=== PATIENT | male | born 1990 | race African-American/Black ===

== ENCOUNTER 2018-07-09 09:22 | Emergency (ER) | payer MEDICAID ==
[~2018-07-09] VITALS: Ht 175.3 cm; Wt 108.9 kg
--- NOTE | 2018-07-09 09:44 | NUR ---
ED Nurse Note: Pt came into the ER w/ complaints of left foot pain x 2 days. Pt is rating the pain a 10/10. Non radiating. Pt states that he thinks it is a stress fracture because he had the same one 2 years ago and he is feeling the same symptoms. Pt denies fallin gor having trauma to the area. Pt noted to be limping while walking anf pt noted to not be able to place pressure on the area. Pt is A + O x4. Ambulatory. Skin warm to touch.
[2018-07-09 09:45] VITALS: BP 135/80
--- NOTE | 2018-07-09 09:51 | NUR ---
ED Nurse Note: Notified radiology of xray order.
--- NOTE | 2018-07-09 09:58 | NUR ---
ED Nurse Note: Xray at the bedside.
--- NOTE | 2018-07-09 10:32 | Diagnostic Imaging Report ---
Indication: Foot pain Technique: XRAY Foot Complete L Comparison: None FINDINGS AND IMPRESSION: Bony mineralization within normal limits. Anatomic alignment and joint spaces are maintained. There is irregularity involving the proximal shaft of the fifth metatarsal which may be related to remote fracture. Alternative possibilities include more acute stress type injury/stress fracture. Correlation with clinical symptoms and physical exam for point tenderness in this region is recommended. There is no radiopaque foreign body.
--- NOTE | 2018-07-09 10:56 | Emergency Room Report ---
History of Present Illness General Chief Complaint: Pain Source: Patient Present Illness HPI This patient states that about 2 years ago he had a stress fracture in his left foot. He states this is secondary to doing a lot of walking and being on his feet in boots. He states that over the past couple days he had been wearing an un-supportive shoe. He states that he has pain in the ball of the foot. He states this feels similar to his previous stress fracture. He had no specific trauma. He has no other complaints. Allergies: Coded Allergies: No Known Allergies (Unverified , 07/09/18) Patient History Past Medical History: none, see triage record Social History: Denies: smoking, alcohol use, drug use Reviewed Nursing Documentation: PMH: Agreed; PSxH: Agreed Nursing Documentation-PMH Past Medical History: No Stated History Review of Systems All Other Systems: negative except mentioned in HPI Physical Exam Vital Signs Date Time Temp Pulse Resp B/P (MAP) Pulse Ox O2 Delivery O2 Flow Rate FiO2 07/09/18 09:37 98.4 74 18 137/85 96 Room Air Sp02 EP Interpretation: reviewed, normal General Appearance: no apparent distress, alert, GCS 15, non-toxic Head: normocephalic, atraumatic Eyes: bilateral eye normal inspection, bilateral eye PERRL ENT: hearing grossly normal, no angioedema, normal voice Neck: normal inspection Respiratory: no respiratory distress, no retraction, no accessory muscle use, speaking full sentences Rectal: deferred Musculoskeletal: back normal, normal range of motion, tender - TTP in the ST of the L. mid ball of the foot. Neurologic: alert, oriented x3, responsive, motor strength/tone normal, sensory intact, speech normal Psychiatric: judgement/insight normal, memory normal, mood/affect normal, no suicidal/homicidal ideation Skin: normal color, no rash, warm/dry, well hydrated Medical Decision Making Diagnostic Impression: Primary Impression: Foot pain, left ER Course This patient has pain and tenderness to palpation on the left mid ball of the foot at the distal second and third metatarsal heads. X-ray of the left foot is unremarkable. The patient was educated that in order to diagnose a stress fracture he would need to undergo MRI as an outpatient. There is no obvious fracture. My examination is more consistent with plantar fascia tenderness and soft tissue tenderness. I have a low suspicion for foot fracture. However, the patient was given an with his shoe and crutches for comfort and instructed to follow-up with his primary care physician for further evaluation. At this time, I did not identify an emergency medical condition. Other X-Ray Diagnostic Results Other X-Ray Diagnostic Results : X-Ray ordered: L. Foot xray # of Views/Limited Vs Complete: Complete Indication: Pain EP Interpretation: No Interpretation: no fractures, other - See official report from Radiologist. Patient was not tender in this location. Impression: No acute disease Electronically Signed by: Connie Dexter DO Last Vital Signs Date Time Temp Pulse Resp B/P (MAP) Pulse Ox O2 Delivery O2 Flow Rate FiO2 07/09/18 09:45 98.3 66 20 135/80 97 Room Air Status: improved Disposition: HOME, SELF-CARE Condition: Improved Referrals: [facility],REFERRING (PCP) Connie Dexter DO Jul 09, 2018 10:56
[2018-07-09] MEDS ORDERED: IBUPROFEN800 MG ORAL (10:58)
--- NOTE | 2018-07-09 10:58 | NUR ---
ED Nurse Note: Splint and crutches provided for pt.
[2018-07-09 11:04] VITALS: BP 130/85
--- NOTE | 2018-07-09 11:05 | NUR ---
ER DISCHARGE NOTE: Patient is cleared to be discharged per ERMD, pt is aox4, on room air, with stable vital signs. pt was given dc and prescription instructions, pt was able to verbalize understanding, pt id band removed without complications. pt is able to ambulate with steady gait. pt took all belongings.
== END 2018-07-09 11:05 | disposition home or self-care (01) ==
LOC: EMR 10:15
DX: M79.672 Pain in left foot (principal)
CPT/HCPCS: 99283

== ENCOUNTER 2018-08-20 22:31 | Emergency (ER) | payer MEDICAID ==
[~2018-08-20] VITALS: Ht 175.3 cm; Wt 117.9 kg
[~2018-08-20 22:31] MED LIST: IBUPROFEN800 MG ORAL
--- NOTE | 2018-08-20 22:35 | NUR ---
NO ANSWER FOR PT IN LOBBY
--- NOTE | 2018-08-20 22:50 | NUR ---
ED Nurse Note: Patient walked in to ER c/o abdominal pain, N/V/D since 1800. AAO x4, VSS at this time, skin is dry, intact. Patient complaining of abdominal pain 8/ due to food poisonoing. Per patient he ate tacos today and got poisoned.
--- NOTE | 2018-08-20 22:53 | Emergency Room Report ---
History of Present Illness General Chief Complaint: Nausea, Vomiting, and Diarrhea Source: Patient Present Illness HPI Patient presents with nausea and diarrhea with abdominal pain. He thinks he might of eaten something bad this morning. The pain is constant but is somewhat better after he moves his bowels. Denies dysuria. No vomiting blood and there is no blood in the diarrhea. Pain rated 10/10 in stomach - cramping and mostly constant, diffuse, not radiating. No fevers and chills. Fells dehydrated and weak when standing. No chest pain, sore throat, productive cough, dyspnea, joint pain, rashes, depression. 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 Nursing Documentation: PMH: Agreed; PSxH: Agreed Nursing Documentation-PMH Past Medical History: No Stated History Review of Systems All Other Systems: negative except mentioned in HPI Physical Exam Vital Signs Date Time Temp Pulse Resp B/P (MAP) Pulse Ox O2 Delivery O2 Flow Rate FiO2 08/20/18 22:40 98.4 94 18 98 Room Air Sp02 EP Interpretation: reviewed, normal General Appearance: well appearing, no apparent distress, GCS 15 Head: normocephalic, atraumatic Eyes: bilateral eye normal inspection, bilateral eye PERRL, bilateral eye EOMI ENT: moist mucus membranes Neck: supple Respiratory: lungs clear, normal breath sounds Cardiovascular #1: regular rate, rhythm Cardiovascular #2: 2+ radial (R) Gastrointestinal: normal inspection, normal bowel sounds, no mass, non- distended, no guarding, no rebound, tenderness - diffuse Genitourinary: no CVA tenderness Musculoskeletal: back normal, gait/station normal, normal range of motion Neurologic: alert, oriented x3, grossly normal Psychiatric: mood/affect normal Skin: normal inspection, warm/dry Medical Decision Making Diagnostic Impression: Primary Impression: Nausea, vomiting, and diarrhea Additional Impression: Leukocytosis Qualified Codes: D72.828 - Other elevated white blood cell count ER Course Patient presents with nausea abdominal pain and diarrhea. Differential includes gastroenteritis, food poisoning, diverticulitis, pancreatitis amongst others. He will be evaluated with labs. He will receive IV hydration, Zofran, Toradol and small dose of morphine. Leukocytosis, CMP normal except mild renal insufficiency. UA clear. Pain return. WBC high. CT ordered and repeat morphine. Improved after second morphine. CT no acute pathology. Improved. Sleeping. Discussed treatment plan. Patient stable for outpatient observation and treatment. Laboratory Tests Test 08/20/18 23:05 08/21/18 03:10 White Blood Count 17.2 K/UL (4.8-10.8) H Red Blood Count 5.61 M/UL (4.70-6.10) Hemoglobin 16.1 G/DL (14.2-18.0) Hematocrit 46.7 % (42.0-52.0) Mean Corpuscular Volume 83 FL (80-99) Mean Corpuscular Hemoglobin 28.6 PG (27.0-31.0) Mean Corpuscular Hemoglobin Concent 34.4 G/DL (32.0-36.0) Red Cell Distribution Width 12.4 % (11.6-14.8) Platelet Count 312 K/UL (150-450) Mean Platelet Volume 6.3 FL (6.5-10.1) L Neutrophils (%) (Auto) 75.6 % (45.0-75.0) H Lymphocytes (%) (Auto) 17.7 % (20.0-45.0) L Monocytes (%) (Auto) 5.3 % (1.0-10.0) Eosinophils (%) (Auto) 0.6 % (0.0-3.0) Basophils (%) (Auto) 0.8 % (0.0-2.0) Sodium Level 143 MMOL/L (136-145) Potassium Level 3.6 MMOL/L (3.5-5.1) Chloride Level 106 MMOL/L (98-107) Carbon Dioxide Level 27 MMOL/L (21-32) Anion Gap 10 mmol/L (5-15) Blood Urea Nitrogen 12 mg/dL (7-18) Creatinine 1.5 MG/DL (0.55-1.30) H Estimate Glomerular Filtration Rate > 60 mL/min (>60) Glucose Level 140 MG/DL (74-106) H Calcium Level 9.5 MG/DL (8.5-10.1) Total Bilirubin 0.2 MG/DL (0.2-1.0) Aspartate Amino Transferase (AST) 36 U/L (15-37) Alanine Aminotransferase (ALT) 46 U/L (12-78) Alkaline Phosphatase 68 U/L (46-116) Total Protein 8.6 G/DL (6.4-8.2) H Albumin 3.3 G/DL (3.4-5.0) L Globulin 5.3 g/dL Albumin/Globulin Ratio 0.6 (1.0-2.7) L Lipase 133 U/L (73-393) Urine Color Pale yellow Urine Appearance Clear Urine pH 5 (4.5-8.0) Urine Specific [place] 1.015 (1.005-1.035) Urine Protein Negative (NEGATIVE) Urine Glucose (UA) Negative (NEGATIVE) Urine Ketones Negative (NEGATIVE) Urine Blood 1+ (NEGATIVE) H Urine Nitrite Negative (NEGATIVE) Urine Bilirubin Negative (NEGATIVE) Urine Urobilinogen Normal MG/DL (0.0-1.0) Urine Leukocyte Esterase Negative (NEGATIVE) Urine RBC 0-2 /HPF (0 - 0) H Urine WBC 0-2 /HPF (0 - 0) Urine Squamous Epithelial Cells Occasional /LPF Urine Bacteria Few /HPF (NONE) CT/MRI/US Diagnostic Results CT/MRI/US Diagnostic Results : Imaging Test Ordered: abd pelvis Impression Impression: No acute abnormality 1.8 cm right adrenal nodule, demonstrating nonspecific soft tissue attenuation. Most likely benign; recommend follow-up surveillance CT in one year Last Vital Signs Date Time Temp Pulse Resp B/P (MAP) Pulse Ox O2 Delivery O2 Flow Rate FiO2 08/21/18 06:10 98.5 18 98 Room Air 08/20/18 22:40 94 Status: improved Disposition: HOME, SELF-CARE Condition: Improved Scripts Tramadol Hcl* (ULTRAM*) 50 Mg Tablet 50 MG ORAL Q6H PRN for For Pain, #6 TAB 0 Refills Prov: Aj Garcia MD 08/21/18 Ondansetron Odt* (ZOFRAN ODT*) 4 Mg Tab.rapdis 4 MG BC EVERY 8 HOURS, #6 TAB 0 Refills Prov: Aj Garcia MD 08/21/18 Aj Garcia MD August 20, 2018 22:53
[2018-08-20] MEDS ORDERED: Ketorolac 30mg Inj IV ONE (23:00)
[2018-08-20] MEDS ORDERED: Morphine Sulfate 2mg/ml Inj(IV/IM USE ONLY) IVP ONE (23:00)
[2018-08-20 23:35] LABS: BASOPHILS % (AUTO) 0.8 % (0.0-2.0); EOSINOPHILS % (AUTO) 0.6 % (0.0-3.0); HEMATOCRIT 46.7 % (42.0-52.0); HEMOGLOBIN 16.1 G/DL (14.2-18.0); LYMPHOCYTES % (AUTO) 17.7 % (20.0-45.0); MEAN CORPUSCULAR VOLUME 83 FL (80-99); MONOCYTES % (AUTO) 5.3 % (1.0-10.0); NEUTROPHILS % (AUTO) 75.6 % (45.0-75.0); PLATELET COUNT 312 K/UL (150-450); RED BLOOD COUNT 5.61 M/UL (4.70-6.10); RED CELL DISTRIBUTION WIDTH 12.4 % (11.6-14.8); WHITE BLOOD COUNT 17.2 K/UL (4.8-10.8)
[2018-08-20 23:42] LABS: ANION GAP 10 mmol/L (5-15); BLOOD UREA NITROGEN 12 mg/dL (7-18); CALCIUM 9.5 MG/DL (8.5-10.1); CARBON DIOXIDE 27 MMOL/L (21-32); CHLORIDE 106 MMOL/L (98-107); CREATININE 1.5 MG/DL (0.55-1.30); POTASSIUM 3.6 MMOL/L (3.5-5.1); SODIUM 143 MMOL/L (136-145)
[2018-08-20 23:47] LABS: ALANINE AMINOTRANSFERASE 46 U/L (12-78); ALBUMIN 3.3 G/DL (3.4-5.0); ALBUMIN/GLOBULIN RATIO 0.6 (1.0-2.7); ALKALINE PHOSPHATASE 68 U/L (46-116); ASPARTATE AMINO TRANSFERASE 36 U/L (15-37); BILIRUBIN,TOTAL 0.2 MG/DL (0.2-1.0)
[2018-08-21] MEDS ORDERED: Morphine Sulfate 4mg/ml Inj (IV USE ONLY) IVP ONE (00:30)
--- NOTE | 2018-08-21 02:30 | NUR ---
ED Nurse Note: Patient is in the bed sleeping, no acute disstress noticed.
[2018-08-21 03:18] LABS: APPEARANCE,URINE CLEAR; BILIRUBIN, URINE NEGATIVE (NEGATIVE); COLOR,URINE PALE YELLOW; GLUCOSE, URINE (UA) NEGATIVE (NEGATIVE); KETONES,URINE NEGATIVE (NEGATIVE); LEUKOCYTE ESTERASE ,URINE NEGATIVE (NEGATIVE); NITRITE,URINE NEGATIVE (NEGATIVE); PH,URINE 5 (4.5-8.0); PROTEIN,URINE NEGATIVE (NEGATIVE); UROBILINOGEN,URINE NORMAL MG/DL (0.0-1.0)
[2018-08-21] MEDS ORDERED: oxyCODONE HCL/Acetaminophen 5/325mg ORAL ONE (03:45)
[2018-08-21] MEDS ORDERED: TRAMADOL HCL50 MG ORAL (06:00)
[2018-08-21] MEDS ORDERED: ONDANSETRON ODT4 MG BC (06:00)
--- NOTE | 2018-08-21 06:10 | NUR ---
ER DISCHARGE NOTE: Patient is cleared to be discharged per ERMD, pt is aox4, on room air, with stable vital signs. pt was given dc and prescription instructions, pt was able to verbalize understanding, pt id band and iv site removed without complications. pt is able to ambulate with steady gait. pt took all belongings.
--- NOTE | 2018-08-21 10:58 | Diagnostic Imaging Report ---
Indication: Abdominal pain for 2 days Technique: Spiral acquisitions obtained through the abdomen and pelvis. No oral contrast utilized, per emergency room physician request No IV contrast utilized, per referring physician request.. Multiplanar reconstructions were generated. Total dose length product 1151.87 mGycm. CTDIvol(s) 19.51 mGy. Dose reduction achieved using automated exposure control Comparison: None Findings: No evidence of diverticulosis or diverticulitis. The appendix is normal. Equivocal slightly prominent mural fat seen in the ascending colon wall. No small bowel distention. No free or loculated intraperitoneal gas or fluid. The distal esophagus, stomach, and duodenum are unremarkable. The lack of IV contrast limits assessment of the solid organs. Liver, gallbladder, bile ducts, pancreas, spleen unremarkable. There is a 1.8 cm right adrenal nodule which demonstrates nonspecific soft tissue attenuation. No retroperitoneal or mesenteric mass or adenopathy. No pelvic mass or adenopathy. The included lung bases are clear except for some atelectatic changes on the right. The bones are unremarkable. Impression: No acute abnormality 1.8 cm right adrenal nodule, demonstrating nonspecific soft tissue attenuation. Most likely benign; recommend follow-up surveillance CT in one year This agrees with the preliminary interpretation provided overnight by [facility] teleradiology service. The CT scanner at [facility] is accredited by the [employer] and the scans are performed using protocols designed to limit radiation exposure to as low as reasonably achievable to attain images of sufficient resolution adequate for diagnostic evaluation.
== END 2018-08-21 06:10 | disposition home or self-care (01) ==
LOC: EMR 08-21 03:50
DX: R11.2 Nausea with vomiting, unspecified (principal); R19.7 Diarrhea, unspecified; R10.9 Unspecified abdominal pain; D72.829 Elevated white blood cell count, unspecified
CPT/HCPCS: 36415; 74176; 80053; 81003; 83690; 85025; 96361; 96374; 96375; 96376; 99284; J1885; J2270; J2405; S0028

== ENCOUNTER 2018-11-22 20:07 | Emergency (ER) | payer MEDICAID ==
[~2018-11-22] VITALS: Ht 177.8 cm; Wt 113.4 kg
[~2018-11-22 20:07] MED LIST changes: +ONDANSETRON ODT4 MG BC; +TRAMADOL HCL50 MG ORAL
--- NOTE | 2018-11-22 20:23 | NUR ---
ED Nurse Note: PT WAS WHEELED INTO ED C/O OF R KNEE PAIN X 1 DAY S/P KNEELING DOWN FOR 45 MIN WHILE USING HIS PHONE
[2018-11-22 20:40] VITALS: BP 132/84
--- NOTE | 2018-11-22 20:41 | Emergency Room Report ---
History of Present Illness General Chief Complaint: Pain Source: Patient Present Illness HPI Disclaimer: Please note that this report is being documented using DRAGON technology. This can lead to erroneous entry secondary to incorrect interpretation by the dictating instrument. HPI: 28-year-old male with no medical history presents for evaluation of right knee pain. Symptoms began yesterday. He states he was in a prolonged crouched position and noted soreness over his knee. Today he was walking around all day in the park attending a family barbecue noted worsening pain and swelling above the patella. There is no trauma or injury. No twisting motion. No prior history of knee problems. No history of gout. No recent illness and denies any fevers, chills, abdominal pain, diarrhea, chest pain, shortness of breath or other symptoms. He took 2 extra strength Tylenols without any improvement. PMH: None PSH: None Allergies: None Social Hx: Denies drug alcohol or tobacco use Allergies: Coded Allergies: No Known Allergies (Unverified , 08/20/18) Nursing Documentation-PMH Past Medical History: No Stated History Review of Systems All Other Systems: negative except mentioned in HPI Physical Exam Vital Signs Date Time Temp Pulse Resp B/P (MAP) Pulse Ox O2 Delivery O2 Flow Rate FiO2 11/22/18 20:23 98.8 98 18 132/84 (100) 100 Room Air General: Awake and alert, no acute distress HEENT: NC/AT. EOMI. Resp: Normal work of breathing. Skin: Intact. No abrasions, laceration or rash over the exposed skin MSK: Normal tone and bulk. Moving all extremities. No obvious deformity. Mild tenderness over the patella and superior to the patella over the quadriceps tendon. No significant surrounding erythema. Slight effusion. No overlying skin changes or breakdown. Difficulty with flexion. No masses in the popliteal fossa. DP and PT pulses are 2+. Neuro: Awake and alert. Mentating appropriately. Sensation intact over the dermatomes of lower extremities bilaterally. Medical Decision Making ER Course 28-year-old otherwise healthy male presents for evaluation of knee pain. Differential includes but is not limited to arthritis, occult injury, bursitis, gout, pseudogout, septic joint. Will obtain an x-ray and treat with NSAIDs. Patient may require an arthrocentesis. Other X-Ray Diagnostic Results Other X-Ray Diagnostic Results : X-Ray ordered: right knee # of Views/Limited Vs Complete: 3 View Indication: Pain EP Interpretation: Yes Interpretation: no dislocation, other - There is soft tissue swelling possible effusion Impression: Other - No fracture. Soft tissue swelling with possible effusion Electronically Signed by: Electronically signed by Dr. Jovon Way Reevaluation Time: 21:28 Last Vital Signs Date Time Temp Pulse Resp B/P (MAP) Pulse Ox O2 Delivery O2 Flow Rate FiO2 11/22/18 20:23 98.8 98 18 132/84 (100) 100 Room Air Status: improved Reevaluation Impression X-ray shows some soft tissue swelling and possible effusion. There is no fracture. I discussed with the patient that to rule out the joint or bursitis we would have to perform an arthrocentesis of the knee however at this time he declined. He does not have any real overlying skin changes, no erythema, no warmth on palpation and overall does not appear septic. He is somewhat overweight and given his prolonged crouching yesterday may be a flareup of early osteoarthritis or just some strain. Will start high-dose NSAIDs, apply Khanh wrap and provide coverage crutches for the patient's comfort and for safe ambulation. The patient will be discharged home with very strict return precautions. He understands reasons to return to the emergency department and need for close follow-up. Disposition: HOME, SELF-CARE Condition: Improved Scripts Acetaminophen (Tylenol) 325 Mg Tablet 650 MG ORAL Q6H PRN for Prn Pain/Headache/Temp > 101, #60 TAB [address]: Jovon [address] MD 11/22/18 Ibuprofen* (MOTRIN*) 600 Mg Tablet 600 MG ORAL Q6H PRN for For Pain, #60 TAB 0 Refills Prov: Jovon Way MD 11/22/[address] MD Nov 22, 2018 20:41
[2018-11-22] MEDS ORDERED: Ketorolac 30mg Inj IM ONE (20:45)
--- NOTE | 2018-11-22 20:47 | NUR ---
ED Nurse Note: XRAY AT BEDSIDE
[2018-11-22] MEDS ORDERED: TYLENOL325 MG ORAL (21:27)
[2018-11-22] MEDS ORDERED: IBUPROFEN600 MG ORAL (21:27)
--- NOTE | 2018-11-22 21:34 | Diagnostic Imaging Report ---
EXAM: XR Right Knee, 3 views CLINICAL HISTORY: PAIN TECHNIQUE: Three views of the right knee. COMPARISON: No relevant prior studies available. FINDINGS: Bones/joints: Unremarkable. No acute fracture. No dislocation. Soft tissues: Unremarkable. IMPRESSION: 1. Normal study. 2. If there is concern for occult fracture, recommend follow-up radiographs in 7-10 days.
[2018-11-22 21:39] VITALS: BP 128/81
--- NOTE | 2018-11-22 21:40 | NUR ---
ER DISCHARGE NOTE: Patient is cleared to be discharged per ERMD, pt is aox4, on room air, with stable vital signs. pt was given dc and prescription instructions, pt was able to verbalize understanding, pt id band. pt is able to ambulate with steady gait. pt took all belongings.
== END 2018-11-22 21:09 | disposition home or self-care (01) ==
LOC: EMR 20:47
DX: M25.561 Pain in right knee (principal)
CPT/HCPCS: 73562; 96372; 99283; J1885